=== PATIENT | male | born 1950 | race Caucasian/White ===

== ENCOUNTER 2024-02-17 11:37 | Day surgery (SDC) | payer OTHER ==
[~2024-02-17] VITALS: Ht 170.2 cm; Wt 82.0 kg
[~2024-02-17 11:37] MED LIST: CYCLOPENTOLATE HCL 1% 2 ML OPHTHALMIC SOLUTION ONE; FLURBIPROFEN SODIUM 0.03% 2.5 ML OPHTHALMIC SOLUTION ONE; LIDOCAINE/PF 1% 2 ML VIAL ONE; MOXIFLOXACIN HCL 0.5% 3 ML OPHTHALMIC SOLUTION ONE; NEOMYCIN/POLYMYXIN B/DEXAMETH 3.5 GM OPHTHALMIC OINTMENT ONE; PHENYLEPHRINE HCL 2.5% 2 ML OPHTHALMIC SOLUTION ONE; PrednisoLONE ACETATE 1% 5 ML OPHTHALMIC SUSPENSION ONE; RINGERS SOLUTION,LACTATED 0 ML IV ONE; RINGERS SOLUTION,LACTATED 500 ML IV ONE; TETRACAINE HCL/PF 0.5% 4 ML OPHTHALMIC SOLUTION ONE; TROPICAMIDE 1% 2 ML OPHTHALMIC SOLUTION ONE
[2024-02-17] MEDS ORDERED: PrednisoLONE ACETATE 1% 5 ML OPHTHALMIC SUSPENSION OS ONE (12:00)
[2024-02-17] MEDS ORDERED: ACETYLCHOLINE CHLORIDE 1 EA INTRAOCULAR SOLUTION KIT IO ONE ×2 (12:00→12:27)
[2024-02-17] MEDS ORDERED: HYALURONATE SOD 8.5MG/0.85ML 10 MG/ML SYRINGE IO ONE (12:00)
[2024-02-17] MEDS ORDERED: BALANCED SALT 15 ML OPHTHALMIC IRRIG.SOLN OS ONE (12:00)
[2024-02-17] MEDS ORDERED: FentaNYL CITRATE PF 100 MCG/2 ML VIAL IVP ONE (12:00)
[2024-02-17] MEDS ORDERED: MIDAZOLAM HCL 2 MG/2 ML VIAL IVP ONE (12:00)
[2024-02-17] MEDS ORDERED: EPINEPHrine 1:1,000 [1 MG/ML] VIAL SQ ONE (12:00)
[2024-02-17] MEDS ORDERED: POVIDONE-IODINE 5% 30 ML OPHTHALMIC SOLUTION OS ONE (12:00)
[2024-02-17] MEDS ORDERED: LIDOCAINE/PF 1% 2 ML VIAL IM ONE (12:00)
[2024-02-17] MEDS ORDERED: SEVE800T38 PO (12:30)
[2024-02-17] MEDS ORDERED: LOSA-382 PO (12:30)
[2024-02-17] MEDS ORDERED: ROPI0.2535 PO (12:30)
[2024-02-17] MEDS ORDERED: HYDR50TA36 PO (12:30)
[2024-02-17] MEDS ORDERED: ACETAMINOPHEN 325 MG TABLET PO PRN (12:30)
[2024-02-17] MEDS ORDERED: TRAZ-257 PO (12:30)
[2024-02-17] MEDS ORDERED: METO50 PO (12:30)
[2024-02-17] MEDS ORDERED: BENZ-227 PO (12:30)
[2024-02-17] MEDS ORDERED: AMLO-258 PO (12:30)
[2024-02-17] MEDS ORDERED: IPRA4AER IH (12:30)
[2024-02-17] MEDS ORDERED: FURO20 PO (12:30)
[2024-02-17] MEDS: CYCLOPENTOLATE HCL 1% 2 ML OPHTHALMIC SOLUTION OS SCH (12:39)
[2024-02-17] MEDS: TROPICAMIDE 1% 2 ML OPHTHALMIC SOLUTION OS SCH (12:39)
[2024-02-17] MEDS: FLURBIPROFEN SODIUM 0.03% 2.5 ML OPHTHALMIC SOLUTION OS SCH (12:39)
[2024-02-17] MEDS: PHENYLEPHRINE HCL 2.5% 2 ML OPHTHALMIC SOLUTION OS SCH (12:39)
[2024-02-17] MEDS: MOXIFLOXACIN HCL 0.5% 3 ML OPHTHALMIC SOLUTION OS SCH (12:39)
[2024-02-17] MEDS: TETRACAINE HCL/PF 0.5% 4 ML OPHTHALMIC SOLUTION OS SCH (12:40)
[2024-02-17] MEDS: SODIUM CHLORIDE 0.9% 500 ML IV ONE (12:40)
[2024-02-17 12:56] LABS: GLUCOMETER DEV NAME(LOC) SDS.; GLUCOSE,POINT OF CARE 133 MG/DL (70-110)
[2024-02-17] MEDS: POVIDONE-IODINE 5% 30 ML OPHTHALMIC SOLUTION ONE (13:50)
[2024-02-17] MEDS: EPINEPHrine 1:1,000 [1 MG/ML] VIAL ONE (14:00)
[2024-02-17] MEDS: BALANCED SALT 15 ML OPHTHALMIC IRRIG.SOLN ONE ×2 (14:10)
[2024-02-17] MEDS: AcetaZOLAMIDE 500 MG ER CAPSULE PO ONE (15:17)
== END 2024-02-17 16:55 | disposition home or self-care (01) ==
LOC: SURGERY 11:37
PROVIDERS: ATTEND Ophthalmology
DX: E11.36 Type 2 diabetes mellitus with diabetic cataract (principal); H25.12 Age-related nuclear cataract, left eye; E11.22 Type 2 diabetes mellitus with diabetic chronic kidney disease; I12.0 Hypertensive chronic kidney disease with stage 5 chronic kidney disease or end stage renal disease; N18.6 End stage renal disease; R06.02 Shortness of breath; R05.3 Chronic cough
CPT/HCPCS: 67005; 66984; 82962; 93005; J0171; J3010; J3490; J2250; J7040; V2632; J7120